=== PATIENT | female | born 1965 | race Caucasian/White ===

== ENCOUNTER 2020-02-06 15:35 | Emergency (ER) | payer MEDICAID ==
[~2020-02-06] VITALS: Ht 162.6 cm; Wt 67.1 kg
--- NOTE | 2020-02-06 15:57 | NUR ---
[email or web address], medical screening exam in progress.
[2020-02-06] MEDS ORDERED: ACETAMINOPHEN 325 MG TABLET PO ONE (16:15)
[2020-02-06] MEDS ORDERED: TRAMADOL HCL 50 MG TABLET PO ONE (16:15)
[2020-02-06] MEDS ORDERED: CLINDAMYCIN HCL 150 MG CAPSULE PO ONE (16:15)
[2020-02-06] MEDS ORDERED: ACETAMINOPHEN 325 MG TABLET ONE (16:25)
[2020-02-06] MEDS ORDERED: CLINDAMYCIN HCL 300 MG CAPSULE ONE (16:25)
[2020-02-06] MEDS ORDERED: TRAMADOL HCL 50 MG TABLET ONE (16:26)
--- NOTE | 2020-02-06 17:06 | NUR ---
Patient is resting comfortably on gurney with eyes close. Comfort and safety measures maintained.
--- NOTE | 2020-02-06 17:39 | NUR ---
Patient verbalized decreased discomfort and pains. Patient is for discharged to home in stable condition. Written and verbal after care instructions given. Patient verbalized understanding & compliance of instructions. Stressed follow up with primary doctor /or Dr Edmondson or return to ER for worsening s/s.
== END 2020-02-06 17:38 | disposition home or self-care (01) ==
LOC: ER 15:35
DX: L03.211 Cellulitis of face (principal); I10 Essential (primary) hypertension; F17.210 Nicotine dependence, cigarettes, uncomplicated
CPT/HCPCS: A4663

== ENCOUNTER 2020-06-04 20:07 | Emergency (ER) | payer MEDICAID ==
[~2020-06-04] VITALS: Ht 162.6 cm; Wt 70.3 kg
--- NOTE | 2020-06-04 20:20 | NUR ---
Patient presents to ED ambulatory complaining of severe Right Shoulder pain (10/10) that radiates down her arm to her fingers. 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 Patient does not complain of chest pain, palpitations, and is sinus rhythm on the monitor. No reports of SOB, and lung sounds clear rosaline. No report of GI/ issues.
[2020-06-04] MEDS ORDERED: HYDROMORPHONE 1 MG/1 ML DISP.SYRIN IM ONE (20:30)
[2020-06-04] MEDS ORDERED: KETOROLAC TROMETHAMINE 15 MG INJ IVP ONE (20:30)
[2020-06-04] MEDS ORDERED: LIDOCAINE 1%-EPI 1:100,000 20 ML VIAL IJ ONE (20:45)
[2020-06-04 21:00] LABS: BASOPHILS % (AUTO) 0.1 % (0.0-2.0); EOSINOPHILS # (AUTO) 0.2 K/uL (0.0-0.7); EOSINOPHILS % (AUTO) 1.3 % (0.0-7.0); HEMATOCRIT 44.6 % (31.2-41.9); HEMOGLOBIN 15.1 g/dL (10.9-14.3); LYMPHOCYTES # (AUTO) 1.5 K/uL (20.0-40.0); LYMPHOCYTES % (AUTO) 9.5 % (20.5-51.5); MEAN CORPUSCULAR HEMOGLOBIN 30.8 uug (24.7-32.8); MEAN CORPUSCULAR HGB CONC 34 g/dL (32.3-35.6); MONOCYTES # (AUTO) 0.8 K/uL (2.0-10.0); MONOCYTES % (AUTO) 4.8 % (0.0-11.0); NEUTROPHILS # (AUTO) 13.2 K/uL (1.8-8.9); NEUTROPHILS % (AUTO) 84.3 % (38.5-71.5); PLATELET COUNT (AUTO) 196 K/uL (179-408); WHITE BLOOD COUNT (AUTO) 15.6 K/uL (3.8-11.8)
[2020-06-04] MEDS ORDERED: KETOROLAC TROMETHAMINE 15 MG INJ ONE (21:00)
[2020-06-04] MEDS ORDERED: HYDROMORPHONE 1 MG/1 ML DISP.SYRIN ONE (21:01)
[2020-06-04 21:08] LABS: CREATININE 0.9 mg/dL (0.6-1.3); POTASSIUM 3.5 mmol/L (3.5-5.1)
[2020-06-04] MEDS ORDERED: LIDOCAINE HCL 1% 20 ML VIAL ONE (21:10)
[2020-06-04] MEDS ORDERED: VANCOMYCIN IV 1,000 MG in IV DEXTROSE 5% 250 ML IV ONE (22:00)
[2020-06-04] MEDS ORDERED: CEFTRIAXONE 2 G in IV DEXTROSE 5% 100 ML IV ONE (22:00)
[2020-06-04] MEDS ORDERED: CEFTRIAXONE 1 G VIAL ONE (22:17)
--- NOTE | 2020-06-04 23:02 | NUR ---
Patient asleep in bed. No distress.
[2020-06-04] MEDS ORDERED: VANCOMYCIN IV 200 ML ONE (23:07)
--- NOTE | 2020-06-05 01:04 | NUR ---
Patients insurance does not cover her stay at [facility]. Will be transferred to [facility].
[2020-06-05] MEDS ORDERED: KETOROLAC TROMETHAMINE 15 MG INJ IVP ONE (06:00)
[2020-06-05] MEDS ORDERED: MORPHINE SULFATE 4 MG/1 ML DISP.SYRIN IV ONE (06:00)
[2020-06-05] MEDS ORDERED: KETOROLAC TROMETHAMINE 15 MG INJ ONE (06:03)
[2020-06-05] MEDS ORDERED: MORPHINE SULFATE 4 MG/1 ML DISP.SYRIN ONE (06:03)
--- NOTE | 2020-06-05 06:15 | NUR ---
Received transfer info from [facility]). Patient accepted at [facility]. Room 216A. Phone# for report is [phone]. [facility] transport ETA pickup at 0800. Accepting hospital is [facility].
--- NOTE | 2020-06-05 06:30 | NUR ---
Report given to recbetty RN at [facility]. Pickup scheduled for 0800.
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
--- NOTE | 2020-06-05 09:45 | NUR ---
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 Report given to Rhea TREJO. Patient is leaving in stable condition via gurney.
== END 2020-06-05 09:50 | disposition short-term general hospital (02) ==
LOC: ER 20:09
DX: M00.9 Pyogenic arthritis, unspecified (principal); Z85.828 Personal history of other malignant neoplasm of skin; M25.711 Osteophyte, right shoulder; Z20.822 Contact with and (suspected) exposure to COVID-19
CPT/HCPCS: 20610; 36415; 73030; 80048; 85025; 85651; 85730; 86140; 87426; 96365; 96366; 96375 ×2; 96376; 99285; J0696; J1170; J1885 ×2; J2270; J3370; J3490; J7060; A4663; J7030; J7050

== ENCOUNTER 2020-08-11 09:45 | Emergency (ER) | payer MEDICAID ==
[~2020-08-11] VITALS: Ht 162.6 cm; Wt 72.6 kg
[2020-08-11 10:36] LABS: BASOPHILS % (AUTO) 0.4 % (0.0-2.0); EOSINOPHILS % (AUTO) 0.1 % (0.0-7.0); HEMATOCRIT 46.3 % (31.2-41.9); HEMOGLOBIN 15.6 g/dL (10.9-14.3); LYMPHOCYTES # (AUTO) 1.2 K/uL (20.0-40.0); LYMPHOCYTES % (AUTO) 33.9 % (20.5-51.5); MEAN CORPUSCULAR HEMOGLOBIN 30.1 uug (24.7-32.8); MEAN CORPUSCULAR HGB CONC 34 g/dL (32.3-35.6); MEAN CORPUSCULAR VOLUME 89.6 fL (75.5-95.3); MONOCYTES # (AUTO) 0.4 K/uL (2.0-10.0); MONOCYTES % (AUTO) 12.5 % (0.0-11.0); NEUTROPHILS # (AUTO) 1.9 K/uL (1.8-8.9); NEUTROPHILS % (AUTO) 53.1 % (38.5-71.5); PLATELET COUNT (AUTO) 123 K/uL (179-408); RED BLOOD CELL COUNT(AUTO) 5.17 MIL/uL (3.63-4.92); WHITE BLOOD COUNT (AUTO) 3.6 K/uL (3.8-11.8)
[2020-08-11 10:40] LABS: CREATININE 0.8 mg/dL (0.6-1.3); POTASSIUM 3.7 mmol/L (3.5-5.1)
[2020-08-11 10:41] LABS: *BILIRUBIN,URIN 1+ (NEGATIVE); *BLOOD, URINE 2+ (NEGATIVE); *CLARITY,URINE CLEAR (CLEAR); *COLOR,URINE YELLOW (YELLOW); *KETONES,URINE NEGATIVE (NEGATIVE); *UROBILINOGEN,URINE 0.2 E.U./dl (NORMAL); LEUKOCYTE ESTERASE ,URINE NEGATIVE (NEGATIVE); NITRITE, URINE NEGATIVE (NEGATIVE); UGLUCOSE NEGATIVE (NEGATIVE)
[2020-08-11 10:45] LABS: BILIRUBIN,DIRECT 0.1 mg/dL (0.0-0.2); BILIRUBIN,TOTAL 0.3 mg/dL (0.2-1.0); TOTAL PROTEIN, SERUM 7.5 g/dL (6.4-8.2)
[2020-08-11] MEDS ORDERED: IV NORMAL SALINE 1000 ML BAG IV ONE (11:00)
[2020-08-11] MEDS ORDERED: ACET-2154 PO (11:55)
--- NOTE | 2020-08-11 13:00 | NUR ---
Patient discharged to home in stable condition. Written and verbal after care instructions given. Patient verbalizes understanding of instructions. Stressed follow up or return to ER for worsening s/s.pt walks in steady gait. pt says feels better.
[2020-08-11 13:01] VITALS: BP 129/77
[2020-08-11 13:29] LABS: BACTERIA,URINE NONE SEEN /HPF (NONE SEEN); RBC,URINE 0-3 /HPF (0-3); URINE AMORPHOUS PHOSPHATES MANY /HPF; WBC,URINE 0-3 /HPF (0-3)
== END 2020-08-11 13:02 | disposition home or self-care (01) ==
LOC: ER 09:45
DX: B34.9 Viral infection, unspecified (principal); R50.9 Fever, unspecified; Z20.822 Contact with and (suspected) exposure to COVID-19; Z85.828 Personal history of other malignant neoplasm of skin; R03.0 Elevated blood-pressure reading, without diagnosis of hypertension
CPT/HCPCS: 36415; 71045; 85025; 87040; 87086; A4663; J7030

== ENCOUNTER 2021-05-11 13:35 | Emergency (ER) | payer MEDICAID ==
[~2021-05-11] VITALS: Ht 162.6 cm; Wt 72.6 kg
[~2021-05-11 13:35] MED LIST: ACET-2154 PO
[2021-05-11] MEDS: KETOROLAC TROMETHAMINE 60 MG INJ IM ONE (14:24)
[2021-05-11] MEDS ORDERED: KETOROLAC TROMETHAMINE 60 MG INJ IM ONE (14:28)
[2021-05-11] MEDS ORDERED: CYCL10TA9 PO (14:43)
--- NOTE | 2021-05-11 14:53 | NUR ---
Patient said that she feels so much better. I can walk with little pains now. Patient discharged to home in stable condition. Written and verbal after care instructions given. Patient verbalized understanding and compliance of instructions. Stressed follow up with primary doctor or return to ER for worsening s/s.
[2021-05-11 15:25] VITALS: BP 114/74
== END 2021-05-11 14:53 | disposition home or self-care (01) ==
LOC: ER 13:35
DX: S39.012A Strain of muscle, fascia and tendon of lower back, initial encounter (principal); F17.210 Nicotine dependence, cigarettes, uncomplicated; Z79.899 Other long term (current) drug therapy; W01.0XXA Fall on same level from slipping, tripping and stumbling without subsequent striking against object, initial encounter; Y93.89 Activity, other specified; Y92.89 Other specified places as the place of occurrence of the external cause; Y99.8 Other external cause status
CPT/HCPCS: 96372; 99283; J1885; A4663

== ENCOUNTER 2021-12-15 20:03 | Emergency (ER) | payer MEDICAID ==
[~2021-12-15] VITALS: Ht 162.6 cm; Wt 73.5 kg
[~2021-12-15 20:03] MED LIST changes: +CYCL10TA9 PO
--- NOTE | 2021-12-15 20:32 | NUR ---
Dr Salamanca at bedside, MSE in progress
[2021-12-15] MEDS ORDERED: LIDOCAINE 2%-EPI 1:100,000 20 ML VIAL ONE (20:50)
[2021-12-15] MEDS ORDERED: SODIUM BICARBONATE 4.2 % (NEUT) 5 ML VIAL ONE (20:50)
[2021-12-15] MEDS ORDERED: CEphaleXIN 500 MG CAPSULE ONE (20:50)
[2021-12-15] MEDS ORDERED: CEphaleXIN 500 MG CAPSULE PO ONE (21:00)
[2021-12-15] MEDS ORDERED: SODIUM BICARBONATE 4.2 % (NEUT) 5 ML VIAL TP ONE (21:00)
[2021-12-15] MEDS ORDERED: LIDOCAINE 1%-EPI 1:100,000 20 ML VIAL IJ ONE (21:00)
[2021-12-15] MEDS ORDERED: CEPH500T PO (21:11)
--- NOTE | 2021-12-15 21:21 | NUR ---
Patient discharged to home in stable condition. Written and verbal after care instructions given. Patient verbalizes understanding of instructions. Stressed follow up or return to ER for worsening s/s. Patient is a/ox4, NAD noted. Patient is able to walk with crutches
[2021-12-15 21:23] VITALS: BP 134/75
== END 2021-12-15 21:23 | disposition home or self-care (01) ==
LOC: ER 20:05
DX: M79.671 Pain in right foot (principal); Z85.828 Personal history of other malignant neoplasm of skin
CPT/HCPCS: 99284; 73630; 17999; J3490; A4663

== ENCOUNTER 2021-12-17 11:51 | Emergency (ER) | payer MEDICAID ==
[~2021-12-17] VITALS: Ht 162.6 cm; Wt 73.5 kg
[~2021-12-17 11:51] MED LIST changes: +CEPH500T PO
--- NOTE | 2021-12-17 12:25 | NUR ---
Dr black at the bedside for MSE.
[2021-12-17] MEDS ORDERED: SULF1TAB48 PO (12:36)
[2021-12-17] MEDS ORDERED: IBUP-1955 PO (12:36)
--- NOTE | 2021-12-17 12:48 | NUR ---
Patient discharged to home in stable condition. Written and verbal after care instructions given. Patient verbalizes understanding of instructions. Stressed follow up or return to ER for worsening s/s.
== END 2021-12-17 12:48 | disposition home or self-care (01) ==
LOC: ER 11:51
DX: Z48.817 Encounter for surgical aftercare following surgery on the skin and subcutaneous tissue (principal); L03.115 Cellulitis of right lower limb; R03.0 Elevated blood-pressure reading, without diagnosis of hypertension; Z85.828 Personal history of other malignant neoplasm of skin
CPT/HCPCS: A4663

== ENCOUNTER 2022-01-11 18:39 | Emergency (ER) | payer MEDICAID ==
[~2022-01-11] VITALS: Ht 162.6 cm; Wt 72.6 kg
[~2022-01-11 18:39] MED LIST changes: +IBUP-1955 PO; +SULF1TAB48 PO
[2022-01-11] MEDS ORDERED: HYDR-4209 PO (20:52)
[2022-01-11] MEDS ORDERED: SULF1TAB48 PO (20:52)
[2022-01-11] MEDS ORDERED: SULFAMETH/TRIMETH 800/160 MG TABLET PO ONE (21:00)
[2022-01-11] MEDS ORDERED: SULFAMETH/TRIMETH 800/160 MG TABLET ONE (21:01)
[2022-01-11 21:07] VITALS: BP 78/118
== END 2022-01-11 21:08 | disposition home or self-care (01) ==
LOC: ER 18:40
DX: M79.671 Pain in right foot (principal); Z86.14 Personal history of Methicillin resistant Staphylococcus aureus infection; Z85.828 Personal history of other malignant neoplasm of skin
CPT/HCPCS: A4663

== ENCOUNTER 2022-08-06 11:02 | Emergency (ER) | payer MEDICAID ==
[~2022-08-06] VITALS: Ht 162.6 cm; Wt 72.6 kg
[~2022-08-06 11:02] MED LIST changes: +HYDR-4209 PO
--- NOTE | 2022-08-06 11:26 | NUR ---
seen and examined by
[2022-08-06] MEDS ORDERED: KETOROLAC TROMETHAMINE 30 MG INJ IM ONE (11:30)
[2022-08-06] MEDS ORDERED: ACETAMINOPHEN ES 500 MG TABLET PO ONE (11:30)
[2022-08-06] MEDS ORDERED: LIDOCAINE 5% PATCH TD ONE ×2 (11:30→11:42)
[2022-08-06] MEDS ORDERED: CYCLOBENZAPRINE HCL 10 MG TABLET PO ONE (11:30)
[2022-08-06] MEDS ORDERED: ACETAMINOPHEN 325 MG TABLET ONE (11:42)
[2022-08-06] MEDS ORDERED: KETOROLAC TROMETHAMINE 30 MG INJ ONE (11:42)
[2022-08-06] MEDS ORDERED: CYCLOBENZAPRINE HCL 10 MG TABLET ONE (11:43)
[2022-08-06 12:01] LABS: *URINE HCG, QUAL NEGATIVE (NEGATIVE)
[2022-08-06] MEDS ORDERED: LIDO1ADH82 TP (12:39)
[2022-08-06] MEDS ORDERED: CYCL10TA9 PO (12:39)
[2022-08-06 12:40] VITALS: BP 112/80
== END 2022-08-06 12:44 | disposition home or self-care (01) ==
LOC: ER 11:02
DX: M43.6 Torticollis (principal); Z79.1 Long term (current) use of non-steroidal anti-inflammatories (NSAID); Z79.899 Other long term (current) drug therapy
CPT/HCPCS: 99284; 84703; 96372; J1885; A4663